=== PATIENT | female | born 1985 | race Caucasian/White ===

== ENCOUNTER 2024-11-24 15:16 | Emergency (ER) | payer OTHER ==
[2024-11-24 16:07] LABS: Sqamous Epithelial <5 /HPF (None Seen); Urine Crystals Unidentified Few /HPF (None Seen); Urine Culture Reflex Order NOT NEEDED; Urine Microscopic Reflex YN ORDER UMIC
[2024-11-24 16:08] LABS: Absolute Lymphocytes (CBC) 2.1 K/uL (0.7-4.9); Hematocrit 39.4 % (36.0-45.0); Hemoglobin 12.7 g/dL (12.0-15.0); MCH 27.8 pg (27.0-35.0); MCHC 32.2 g/dL (32.0-36.0); MCV 86.4 fL (80-100); MPV 8.6 fL (7.6-11.3); Nucleated RBC Absolute Count 0.0 (0-0); Nucleated Red Blood Cells % 0.0 % (0-0); RBC Red Blood Cell Count 4.56 M/uL (3.86-4.86); White Blood Count 6.60 thou/uL (4.3-10.9)
[2024-11-24 16:30] LABS: ALT/SGPT 19.0 U/L (13-56); AST/SGOT 15.0 U/L (15-37); Albumin 4.4 g/dL (3.4-5.0); Albumin/Globulin Ratio 1.6 (1.1-1.8); Alkaline Phosphatase 54.0 U/L (45-117); Anion Gap 8.4 mEq/L (5.0-15.0); BUN Blood Urea Nitrogen 14.0 mg/dL (7-18); Bilirubin Indirect, Calculated 0.4 mg/dL (0.2-0.8); Globulin 2.8 g/dL (2.3-3.5); Glucose Level 98.0 mg/dL (74-106); NT PRO-BNP 74.0 pg/mL (<125); Potassium 3.4 mEq/L (3.5-5.1); Troponin High Sensitivity 3.4 pg/mL (<58.9)
--- NOTE | 2024-11-24 16:39 | RAD REPORT ---
EXAMINATION: ONE VIEW CHEST XR CLINICAL INDICATION: CHEST PAIN TECHNIQUE: Frontal chest projection is submitted. Examination is limited by patient positioning and t echnique. COMPARISON: No prior exam. FINDINGS: The lungs are well inflated and clear. The heart is normal in size. No displaced fractures identified . IMPRESSION: No acute intrathoracic abnormalities.
--- NOTE | 2024-11-24 17:01 | RAD REPORT ---
EXAM: CT brain without and with contrast HISTORY: rule out sinus thrombosis COMPARISON: None TECHNIQUE: Multiple contiguous axial images were obtained and a CT of the brain without and with cont rast. Sagittal and coronal reformats were performed. One or more of the following dose reduction techniques were used: Automated exposure control, adjust ment of the mA and/or kV according to patient size, and/or iterative reconstruction. FINDINGS:No evidence of hydrocephalus, intracranial hemorrhage, or extra-axial fluid collection. The brain is normal in morphology. No evidence of midline shift or areas of brain edema. The calvarium is intact. The visualized paranasal sinuses and mastoid air cells are essentially clear . No pathologic postcontrast finding. IMPRESSION: No evidence of acute intracranial abnormality. No pathologic postcontrast finding.
--- NOTE | 2024-11-24 17:03 | RAD REPORT ---
EXAMINATION: CTA CHEST PE CLINICAL INDICATION: CHEST PAIN TECHNIQUE: This examination was performed according to an angiographic protocol with 3D post-processi ng. This involves 3D reconstructions, MIPs, volume rendered images and/or shaded surface rendering. One or more of the following dose reduction techniques were used: Automated exposure control, adjustm ent of the mA and/or kV according to patient size, and/or iterative reconstruction. Unless otherwise specified, incidental findings do not require dedicated imaging follow-up. COMPARISON: No prior exam. FINDINGS: Small nodules are present in the right thyroid lobe. PULMONARY ARTERIES: Normal caliber. No evidence of pulmonary emboli to the subsegmental level. THORACIC AORTA: Normal caliber and configuration. LUNGS: No evidence of airspace or interstitial process. No nodules. PLEURA: No pleural effusion. No pneumothorax. MEDIASTINUM AND LYMPH NODES: No mediastinal mass or fluid collection. Normal size mediastinal, hilar, and axillary lymph nodes. OSSEOUS STRUCTURES AND CHEST WALL: Intact. UPPER ABDOMEN: No significant abnormalities. IMPRESSION: No evidence of pulmonary emboli to the subsegmental level.
--- NOTE | 2024-11-24 17:10 | ER ---
Nurse's Notes [facility] Name: Stefanie Stiles Age: 39 yrs Sex: Female : 1985 Arrival Date: 11/24/2024 Time: 15:16 Bed 8 Private MD: Diagnosis: Chest pain, unspecified;Headache Presentation: 11/24 15:32 Chief complaint: Patient states: RT FACIAL PAIN, RT RIB PAIN, CHEST PAIN, AND HEAD PAIN dd2 X 3 WEEKS. PT REPORTS SHE PASSED OUT A COUPLE WEEKS AGO. Coronavirus screen: At this time, the client does not indicate any symptoms associated with coronavirus-19. Ebola Screen: No symptoms or risks identified at this time. Initial Sepsis Screen: Does the patient meet any 2 criteria? No. Patient's initial sepsis screen is negative. Does the patient have a suspected source of infection? No. Patient's initial sepsis screen is negative. Risk Assessment: Do you want to hurt yourself or someone else? Patient reports no desire to harm self or others. Onset of symptoms is unknown. 15:32 Method Of Arrival: Ambulatory dd2 15:32 Acuity: GAYATRI 3 dd2 Triage Assessment: 15:36 General: Appears in no apparent distress. Behavior is cooperative, appropriate for age, dd2 anxious. Pain: Complains of pain in HEAD, CHEST, RT FACE, RT RIBS. Cardiovascular: Reports chest pain, JVD is absent Patient's skin is warm and dry. Respiratory: Airway is patent Respiratory effort is even, unlabored, Respiratory pattern is regular, symmetrical. 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 - Infectious Disease History:: Denies. - Social history:: Smoking status: Patient reports the use of cigarette tobacco products, denies chronic smoking, but will smoke occasionally, Reported history of juuling and/or vaping. - Family history:: not pertinent. - Hospitalizations: : No recent hospitalization is reported. Screenin:30 [facility] ED Fall Risk Assessment (Adult) History of falling in the last 3 months, ph including since admission No falls in past 3 months (0 pts) Confusion or Disorientation No (0 pts) Intoxicated or Sedated No (0 pts) Impaired Gait No (0 pts) Mobility Assist Device Used No (0 pt) Altered Elimination No (0 pt) Score/Fall Risk Level 0 - 2 = Low Risk Oriented to surroundings, Maintained a safe environment, Hourly rounding (assess needs \T\ fall precautionary measures) done. Abuse screen: Denies threats or abuse. Denies injuries from another. Nutritional screening: No deficits noted. Tuberculosis screening: No symptoms or risk factors identified. Assessment: 16:27 General: Appears in no apparent distress. comfortable, well groomed, Behavior is ph cooperative, appropriate for age, anxious. Pain: Complains of pain in R side of face, R back and mid-sternal chest. Pain: Pain does not radiate. Pain began 3 weeks ago. Neuro: Level of Consciousness is awake, alert, obeys commands, Oriented to person, place, time, Appropriate for age. Cardiovascular: Reports chest pain, Capillary refill < 3 seconds in bilateral fingers Chest pain is located in substernal area episodes are intermittent. Respiratory: Airway is patent Respiratory effort is even, unlabored. Derm: Skin is pink, warm \T\ dry. Vital Signs: 15:32 BP 147 / 109; Pulse 105; Resp 16; Temp 98.3; Pulse Ox 100% on R/A; Weight 67.13 kg; dd2 Pain 7/10; 16:26 BP 138 / 92; Pulse 82; Resp 18; Pulse Ox 98% on R/A; ph 17:22 BP 140 / 94; Pulse 81; Resp 18; Temp 97.2; Pulse Ox 98% on R/A; ph 15:32 Pain Scale: Adult dd2 Vitals: 16:26 Cardiac Rhythm Assessment Sinus rhythm. ph ED Course: 15:20 Patient arrived in ED. sj2 15:21 Lul Ross MD is Attending Physician. rn 15:36 Triage completed. dd2 15:36 Arm band placed on right wrist. dd2 15:46 Rogers Newman, RN is Primary Nurse. bp 16:29 Initial lab(s) drawn, by me, sent to lab. EKG done, by ED staff, reviewed by Lul Ross MD. Inserted saline lock: 20 gauge in right antecubital area, using aseptic technique. Blood collected. Flushed with 10 mL NS. Patient maintains SpO2 saturation greater than 95% on room air. 16:30 Patient has correct armband on for positive identification. Bed in low position. Call ph light in reach. Side rails up X 1. Pulse ox on. NIBP on. 16:36 XRAY Chest (1 view) In Process Unspecified. EDMS 16:48 CT Chest For PE Angio In Process Unspecified. EDMS 16:48 CT Head Brain w/wo Con In Process Unspecified. EDMS 17:22 No provider procedures requiring assistance completed. IV discontinued, intact, ph bleeding controlled, No redness/swelling at site. Pressure dressing applied. Administered Medications: No medications were administered Medication: 16:30 VIS not applicable for this client. ph Outcome: 17:09 Discharge ordered by . rn 17:23 Discharged to home ambulatory, ph 17:23 Condition: good 17:23 Discharge instructions given to patient, Instructed on discharge instructions, follow up and referral plans. Demonstrated understanding of instructions, follow-up care, 17:23 Patient left the ED. ph Signatures: Dispatcher [employer] EDMS Lul Ross MD MD rn Hall, Patricia, RN RN Rogers Hdz RN RN bp DAVIS, DIANA, RN RN dd2 Lori Buckley
--- NOTE | 2024-11-24 17:10 | EDPHYS ---
Physician Documentation [facility] Name: Stefanie Stiles Age: 39 yrs Sex: Female : 1985 Arrival Date: 11/24/2024 Time: 15:16 Bed 8 Private MD: ED Physician Lul Ross HPI: 11/24 16:03 This 39 yrs old Female presents to ER via Ambulatory with complaints of Chest Pain > 30 rn y/o, Headache > 24hrs Old. 16:03 Patient reports approximately 3 weeks of intermittent headache and chest pain on the rn right side. Chest pain is sharp and stabbing, right sided. Patient reports family history of "clotting problem". Patient herself has never had a blood clot. Patient reports intermittent episodes of dizziness, difficulty concentrating and chest pain. Patient states had a syncopal episode a few days ago. No trauma.. 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 - Infectious Disease History:: Denies. - Social history:: Smoking status: Patient reports the use of cigarette tobacco products, denies chronic smoking, but will smoke occasionally, Reported history of juuling and/or vaping. - Family history:: not pertinent. - Hospitalizations: : No recent hospitalization is reported. ROS: 16:03 Constitutional: Negative for fever, chills, and weight loss, Cardiovascular: Negative rn for palpitations, and edema Respiratory: Negative for shortness of breath, cough, wheezing, and pleuritic chest pain, Abdomen/GI: Negative for abdominal pain, nausea, vomiting, diarrhea, and constipation, : Negative for injury, bleeding, discharge, and swelling, MS/Extremity: Negative for injury and deformity, Skin: Negative for injury, rash, and discoloration, Neuro: Negative for headache, weakness, numbness, tingling, and seizure, Exam: 16:03 Constitutional: This is a well developed, well nourished patient who is awake, alert, rn corrections to triage without assistance, appears anxious Head/Face: Normocephalic, atraumatic. Eyes: Pupils equal round and reactive to light, extra-ocular motions intact. Lids and lashes normal. Conjunctiva and sclera are non-icteric and not injected. Cornea within normal limits. Periorbital areas with no swelling, redness, or edema. Neck: Trachea midline, no thyromegaly or masses palpated, and no cervical lymphadenopathy. Supple, full range of motion without nuchal rigidity, or vertebral point tenderness. No Meningismus. Cardiovascular: Tachycardic, regular. No pulse deficits. Respiratory: No increased work of breathing, no retractions or nasal flaring. Neuro: Awake and alert, GCS 15, oriented to person, place, time, and situation. Cranial nerves II-XII grossly intact. Motor strength 5/5 in all extremities. Sensory grossly intact. Cerebellar exam normal. Normal gait. 16:46 ECG was reviewed by the Attending Physician. rn Vital Signs: 15:32 BP 147 / 109; Pulse 105; Resp 16; Temp 98.3; Pulse Ox 100% on R/A; Weight 67.13 kg; dd2 Pain 7/10; 16:26 BP 138 / 92; Pulse 82; Resp 18; Pulse Ox 98% on R/A; ph 17:22 BP 140 / 94; Pulse 81; Resp 18; Temp 97.2; Pulse Ox 98% on R/A; ph 15:32 Pain Scale: Adult dd2 MDM: 15:21 Medical Screening Exam initiated rn 17:07 Differential diagnosis: anxiety, chest wall pain, costochondritis, esophagitis, rn pleurisy, pneumonia, pneumothorax, pulmonary embolus. HEART Score: History: Slightly Suspicious (0), ECG: Normal (0), Age: < or = 45 years (0), Risk Factors: No Risk Factors Known (0), Troponin: < or = 1 x Normal Limit (0), Total Score = 0. Data reviewed: vital signs, nurses notes, lab test result(s), EKG, radiologic studies, CT scan, plain films, and as a result, I will discharge patient. Independent interpretation of the following test(s) in the Emergency Department EKG: See my EKG interpretation above X-Ray: My interpretation is Chest x-ray images negative for pneumonia or pneumothorax per my interpretation. 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 Counseling: I had a detailed discussion with the patient and/or guardian regarding the historical points, exam findings, and any diagnostic results supporting the discharge/admit diagnosis, the presence of at least one elevated blood pressure reading (>120/80) during this emergency department visit, lab results, radiology results, the need for outpatient follow up, to return to the emergency department if symptoms worsen or persist or if there are any questions or concerns that arise at home. Special discussion: Based on the patient's history, exam, and Dx evaluation, there is no indication for emergent intervention or inpatient Tx. It is understood by the patient/guardian that if the Sx's persist or worsen they need to return immediately for re-evaluation. I have referred the patient to see his PCP for further evaluation of high blood pressure. Based on the history and exam findings, there is no indication for further emergent testing or inpatient evaluation. I discussed with the patient/guardian the need to see the primary care provider for further evaluation of the symptoms. ED course: I have personally reviewed all of the results, including but not limited to blood tests and imaging deemed necessary to safely discharge this patient at this time. All results given to and printed out for patient. I personally went over all the results with the patient and answered all questions. Patient will follow-up with PCP and or specialist as discussed. Return precautions given and understood.. 11/24 15:44 Order name: Basic Metabolic Panel; Complete Time: 16:34 rn 11/24 15:44 Order name: CBC with Diff; Complete Time: 16:34 rn 11/24 15:44 Order name: LFT's; Complete Time: 16:34 rn 11/24 15:44 Order name: NT PRO-BNP; Complete Time: 16:34 rn 11/24 15:44 Order name: Troponin HS; Complete Time: 16:34 rn 11/24 15:44 Order name: Test, Urine; Complete Time: 16:34 rn 11/24 15:54 Order name: UA Rfx Jesse Cult if indicated; Complete Time: 16:34 ph 11/24 15:44 Order name: XRAY Chest (1 view); Complete Time: 16:41 rn 11/24 15:44 Order name: CT Chest For PE Angio; Complete Time: 17:03 rn 11/24 15:44 Order name: CT Head Brain w/wo Con; Complete Time: 17:03 rn 11/24 15:44 Order name: Cardiac monitoring; Complete Time: 15:56 rn 11/24 15:44 Order name: EKG - Nurse/Tech; Complete Time: 16:31 rn 11/24 15:44 Order name: IV Saline Lock; Complete Time: 15:56 rn 11/24 15:44 Order name: Labs collected and sent; Complete Time: 15:56 rn 11/24 15:44 Order name: O2 Per Protocol; Complete Time: 15:56 rn 11/24 15:44 Order name: O2 Sat Monitoring; Complete Time: 15:56 rn EC:46 Rate is 79 beats/min. Rhythm is regular. QRS [place] is Normal. QRS interval is normal. QT rn interval is normal. No Q waves. T waves are Normal. No ST changes noted. Clinical impression: NSR w/ Non-specific ST/T Changes. Interpreted by me. Reviewed by me. 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 EDMS EDMS 15:45 15:45 Chest For PE Angio+CT.RAD.BRZ ordered. EDMS EDMS 15:45 15:45 Head Brain W/ Wo Con+CT.RAD.BRZ ordered. EDMS EDMS 15:45 15:45 Test, Urine+UC.LAB.BRZ ordered. EDMS EDMS
[2024-11-24 23:43] VITALS: O2SAT 98
[2024-11-24 23:46] VITALS: BP 140/94; TEMP 97.2
== END 2024-11-24 17:23 | disposition home or self-care (01) ==
LOC: ER 15:16
DX: R07.9 Chest pain, unspecified (principal); R51.9 Headache, unspecified; F17.210 Nicotine dependence, cigarettes, uncomplicated
CPT/HCPCS: 93005; 85025; 81001; 80048; 36415; 81025; 80076; 84484; 83880; 70470; 71275; 71045; 99284; Q9967